=== PATIENT | female | born 1970 | race Caucasian/White ===

== ENCOUNTER 2017-02-03 09:58 | Emergency (ER) | payer MEDICAID ==
[~2017-02-03] VITALS: Ht 162.6 cm; Wt 92.5 kg
[~2017-02-03 09:58] MED LIST: ANT12.5 PO; MAC100 PO; MOTRIN800 MG PO
[2017-02-03 10:57] LABS: microscopic required? YES; urine erythrocyte 2+ (NEGATIVE)
[2017-02-03 11:01] LABS: BASOPHIL % 0.3 % (0-2); PLATELET COUNT 241 x10^3mcL (130-400); RED CELL DISTRIBUTION WIDTH 12.7 % (11.5-14.5)
[2017-02-03 11:03] LABS: CALCIUM 8.5 mg/dL (8.5-10.1); CARBON DIOXIDE 23.4 mmol/L (21-32); CHLORIDE SERUM 110 mmol/L (98-107); CREATININE SERUM 0.6 mg/dL (0.6-1.0); GFR1 > 60 mL/min; GLUCOSE SERUM 95 mg/dL (74-106); SODIUM SERUM 144 mmol/L (136-145)
[2017-02-03 11:07] LABS: ALBUMIN 3.1 g/dL (3.4-5.0); ALKALINE PHOSPHATASE 91 U/L (46-116); ALT/SGPT 19 U/L (14-59); AST/SGOT 13 U/L (15-37); BILIRUBIN TOTAL 0.23 mg/dL (0.20-1.00); TOTAL PROTEIN, SERUM 6.9 g/dL (6.4-8.2)
[2017-02-03 12:50] VITALS: BP 118/64
== END 2017-02-03 12:50 | disposition home or self-care (01) ==
LOC: ED 09:58
PROVIDERS: Emergency Medicine
DX: R10.30 Lower abdominal pain, unspecified (principal); R11.0 Nausea; R03.0 Elevated blood-pressure reading, without diagnosis of hypertension; Z87.442 Personal history of urinary calculi
CPT/HCPCS: 36415; J3010; Q0162

== ENCOUNTER 2017-08-30 18:29 | Emergency (ER) | payer MEDICAID ==
[~2017-08-30] VITALS: Ht 157.5 cm; Wt 95.2 kg
[2017-08-30 18:34] VITALS: Ht 157.5 cm; Wt 95.2 kg
[2017-08-30 19:50] LABS: BASOPHIL % 0.3 % (0-2); PLATELET COUNT 291 x10^3mcL (130-400); RED CELL DISTRIBUTION WIDTH 12.9 % (11.5-14.5)
[2017-08-30 20:05] LABS: CARBON DIOXIDE 24.4 mmol/L (21-32); CHLORIDE SERUM 106 mmol/L (98-107); CREATININE SERUM 0.9 mg/dL (0.6-1.0); GFR1 > 60 mL/min; GLUCOSE SERUM 106 mg/dL (74-106); POTASSIUM SERUM 3.7 mmol/L (3.5-5.1); SODIUM SERUM 140 mmol/L (136-145)
[2017-08-30 20:09] LABS: ALBUMIN 3.8 g/dL (3.4-5.0); ALKALINE PHOSPHATASE 109 U/L (46-116); AST/SGOT 15 U/L (15-37); BILIRUBIN TOTAL 0.17 mg/dL (0.20-1.00); TOTAL PROTEIN, SERUM 7.7 g/dL (6.4-8.2)
[2017-08-30 20:22] VITALS: BP 130/73
[2017-08-30 20:28] LABS: ALT/SGPT 19 U/L (14-59)
== END 2017-08-30 21:06 | disposition home or self-care (01) ==
LOC: ED 18:29
PROVIDERS: Emergency Medicine
DX: N20.0 Calculus of kidney (principal); E78.00 Pure hypercholesterolemia, unspecified
CPT/HCPCS: J1885; J7030

== ENCOUNTER 2017-11-05 21:53 | Emergency (ER) | payer MEDICAID ==
[~2017-11-05] VITALS: Ht 157.5 cm; Wt 98.0 kg
[2017-11-05 22:49] VITALS: Ht 157.5 cm; Wt 98.0 kg
[2017-11-06 01:11] VITALS: BP 135/91
== END 2017-11-06 01:11 | disposition home or self-care (01) ==
LOC: ED 21:53
DX: R22.2 Localized swelling, mass and lump, trunk (principal); E78.00 Pure hypercholesterolemia, unspecified

== ENCOUNTER 2017-11-19 01:18 | Inpatient (IN) | payer MEDICAID ==
[~2017-11-19] VITALS: Ht 157.5 cm; Wt 98.9 kg
[~2017-11-19 01:18] MED LIST changes: +ADV200 PO; -MOTRIN800 MG PO
[2017-11-19 01:27] VITALS: Ht 157.5 cm; Wt 98.9 kg
[2017-11-19 05:05] LABS: BASOPHIL % 0.2 % (0-2); PLATELET COUNT 278 x10^3mcL (130-400); RED CELL DISTRIBUTION WIDTH 12.9 % (11.5-14.5)
[2017-11-19 05:11] LABS: CALCIUM 8.6 mg/dL (8.5-10.1); CARBON DIOXIDE 23.3 mmol/L (21-32); CHLORIDE SERUM 105 mmol/L (98-107); CREATININE SERUM 0.9 mg/dL (0.6-1.0); GFR1 > 60 mL/min; GLUCOSE SERUM 116 mg/dL (74-106); POTASSIUM SERUM 3.9 mmol/L (3.5-5.1); SODIUM SERUM 140 mmol/L (136-145)
[2017-11-19 06:40] VITALS: BP 123/68
[2017-11-19 06:57] LABS: T3 TOTAL 1.17 ng/mL
[2017-11-19 07:34] LABS: CHOLESTEROL/HDL RATIO 5.1; MAGNESIUM 1.9 mg/dL (1.8-2.4); PHOSPHOROUS 3.4 mg/dL (2.5-4.9)
[2017-11-19 07:36] LABS: FREE T4 1.15 ng/dL (0.76-1.46); FREE THYROXINE INDEX 2.8 ug/dL (1.4-4.5); T4(THYROXINE) 8.9 ug/dL (4.7-13.3)
[2017-11-19 09:16] VITALS: BP 129/69
[2017-11-19 11:01] VITALS: BP 129/69
[2017-11-19 12:39] VITALS: BP 121/50
[2017-11-19 13:23] LABS: UA SPECIFIC GRAVITY 1.015 (1.005-1.035); microscopic required? YES; urine erythrocyte TRACE (NEGATIVE)
[2017-11-19 14:16] LABS: AMPHETAMINE QUAL UR NONE DETECTED (NEG <=1000)
[2017-11-19 16:27] VITALS: BP 114/69
[2017-11-19 20:28] VITALS: BP 135/79
[2017-11-20 05:31] VITALS: BP 140/78
[2017-11-20] MEDS ORDERED: CYCLOBENZAPRINE5 MG PO (09:05)
[2017-11-20] MEDS ORDERED: FLO4 PO (09:05)
[2017-11-20] MEDS ORDERED: APAP/HYDROCODON1 T13 PO (09:06)
[2017-11-20] MEDS ORDERED: COL100 PO (09:07)
[2017-11-20] MEDS ORDERED: LEVAQUIN750 MG PO (09:09)
[2017-11-20] MEDS ORDERED: LAC PO (09:10)
[2017-11-20 09:35] LABS: CALCIUM 8.3 mg/dL (8.5-10.1); CARBON DIOXIDE 25.2 mmol/L (21-32); CHLORIDE SERUM 108 mmol/L (98-107); CREATININE SERUM 0.9 mg/dL (0.6-1.0); GFR1 > 60 mL/min; GLUCOSE SERUM 107 mg/dL (74-106); SODIUM SERUM 141 mmol/L (136-145)
[2017-11-20 09:51] LABS: BASOPHIL % 0.4 % (0-2); PLATELET COUNT 254 x10^3mcL (130-400); RED CELL DISTRIBUTION WIDTH 12.8 % (11.5-14.5)
[2017-11-20 09:53] VITALS: BP 123/75
[2017-11-20 11:25] VITALS: BP 123/75
== END 2017-11-20 12:22 | disposition home or self-care (01) | DRG 463 ==
LOC: ED 01:18 → DU 05:38
PROVIDERS: Emergency Medicine; Family Medicine
DX: N13.6 Pyonephrosis (principal); K85.90 Acute pancreatitis without necrosis or infection, unspecified; R73.03 Prediabetes; E78.5 Hyperlipidemia, unspecified; F17.200 Nicotine dependence, unspecified, uncomplicated; E66.01 Morbid (severe) obesity due to excess calories; Z68.39 Body mass index [BMI] 39.0-39.9, adult; Z87.442 Personal history of urinary calculi
CPT/HCPCS: 83880; 84439; J0696; J1885; J2270; J2405; J7030; Q0092

== ENCOUNTER 2018-01-05 00:26 | Emergency (ER) | payer MEDICAID ==
[~2018-01-05] VITALS: Ht 157.5 cm; Wt 96.9 kg
[~2018-01-05 00:26] MED LIST changes: +APAP/HYDROCODON1 T13 PO; +COL100 PO; +CYCLOBENZAPRINE5 MG PO; +FLO4 PO; +LAC PO; +LEVAQUIN750 MG PO
[2018-01-05 00:39] VITALS: Ht 157.5 cm; Wt 96.9 kg
[2018-01-05 03:39] LABS: BASOPHIL % 0.4 % (0-2); PLATELET COUNT 291 x10^3mcL (130-400); RED CELL DISTRIBUTION WIDTH 12.7 % (11.5-14.5)
[2018-01-05 03:41] LABS: UA SPECIFIC GRAVITY >=1.030 (1.005-1.035); microscopic required? YES; urine erythrocyte 3+ (NEGATIVE)
[2018-01-05 04:59] LABS: CARBON DIOXIDE 25.7 mmol/L (21-32); CHLORIDE SERUM 107 mmol/L (98-107); CREATININE SERUM 0.8 mg/dL (0.6-1.0); GFR1 > 60 mL/min; GLUCOSE SERUM 107 mg/dL (74-106); POTASSIUM SERUM 3.7 mmol/L (3.5-5.1); SODIUM SERUM 143 mmol/L (136-145); TOTAL PROTEIN, SERUM 7.4 g/dL (6.4-8.2)
[2018-01-05 05:00] LABS: ALBUMIN 3.5 g/dL (3.4-5.0); ALKALINE PHOSPHATASE 108 U/L (46-116); ALT/SGPT 24 U/L (14-59); AST/SGOT 17 U/L (15-37); BILIRUBIN TOTAL 0.15 mg/dL (0.20-1.00); CALCIUM 8.8 mg/dL (8.5-10.1)
[2018-01-05 06:11] VITALS: BP 126/88
== END 2018-01-05 06:19 | disposition home or self-care (01) ==
LOC: ED 00:26
PROVIDERS: Emergency Medicine
DX: N20.1 Calculus of ureter (principal); R11.10 Vomiting, unspecified; E78.00 Pure hypercholesterolemia, unspecified
CPT/HCPCS: J1885; J2270; J2405; J7030

== ENCOUNTER 2018-04-11 01:54 | Emergency (ER) | payer MEDICAID ==
[~2018-04-11] VITALS: Ht 157.5 cm; Wt 95.3 kg
[2018-04-11 02:24] VITALS: Ht 157.5 cm; Wt 95.3 kg
[2018-04-11 04:12] LABS: BASOPHIL % 0.3 % (0-2); PLATELET COUNT 289 x10^3mcL (130-400); RED CELL DISTRIBUTION WIDTH 13.2 % (11.5-14.5)
[2018-04-11 04:24] LABS: CALCIUM 8.8 mg/dL (8.5-10.1); CARBON DIOXIDE 25.1 mmol/L (21-32); CHLORIDE SERUM 106 mmol/L (98-107); CREATININE SERUM 0.8 mg/dL (0.6-1.0); GFR1 > 60 mL/min; GLUCOSE SERUM 126 mg/dL (74-106); POTASSIUM SERUM 3.3 mmol/L (3.5-5.1); SODIUM SERUM 140 mmol/L (136-145)
[2018-04-11 04:28] LABS: ALBUMIN 3.5 g/dL (3.4-5.0); ALKALINE PHOSPHATASE 100 U/L (46-116); ALT/SGPT 20 U/L (14-59); AST/SGOT 14 U/L (15-37); BILIRUBIN TOTAL 0.2 mg/dL (0.20-1.00); LIPASE 197 IU/L (73-393); TOTAL PROTEIN, SERUM 7.4 g/dL (6.4-8.2)
[2018-04-11 05:13] VITALS: BP 139/90
== END 2018-04-11 07:12 | disposition home or self-care (01) ==
LOC: ED 01:54
PROVIDERS: Emergency Medicine
DX: N21.1 Calculus in urethra (principal); E78.00 Pure hypercholesterolemia, unspecified; Z98.890 Other specified postprocedural states
CPT/HCPCS: J2270; J2405; J7030; Q0162

== ENCOUNTER 2018-11-17 00:40 | Emergency (ER) | payer MEDICAID ==
[~2018-11-17] VITALS: Ht 157.5 cm; Wt 95.7 kg
[2018-11-17 01:11] VITALS: Ht 157.5 cm; Wt 95.7 kg
[2018-11-17 02:33] LABS: BASOPHIL % 0.4 % (0-2); PLATELET COUNT 329 x10^3mcL (130-400)
[2018-11-17 02:41] LABS: CALCIUM 8.8 mg/dL (8.5-10.1); CARBON DIOXIDE 26.4 mmol/L (21-32); CHLORIDE SERUM 105 mmol/L (98-107); CREATININE SERUM 0.8 mg/dL (0.6-1.0); GFR1 > 60 mL/min; GLUCOSE SERUM 108 mg/dL (74-106); POTASSIUM SERUM 3.8 mmol/L (3.5-5.1); SODIUM SERUM 140 mmol/L (136-145)
[2018-11-17 02:46] LABS: ALBUMIN 3.6 g/dL (3.4-5.0); ALKALINE PHOSPHATASE 105 U/L (46-116); ALT/SGPT 21 U/L (14-59); AST/SGOT 12 U/L (15-37); BILIRUBIN TOTAL 0.2 mg/dL (0.20-1.00); TOTAL PROTEIN, SERUM 7.5 g/dL (6.4-8.2)
[2018-11-17 05:24] VITALS: BP 120/60
== END 2018-11-17 05:24 | disposition home or self-care (01) ==
LOC: ED 00:40
PROVIDERS: Emergency Medicine
DX: N20.0 Calculus of kidney (principal); K80.80 Other cholelithiasis without obstruction; E78.00 Pure hypercholesterolemia, unspecified; Z87.442 Personal history of urinary calculi; Z98.890 Other specified postprocedural states
CPT/HCPCS: J1885; J2270; J2405; J2765; J7030

== ENCOUNTER 2019-07-09 11:42 | Inpatient (IN) | payer MEDICAID ==
[~2019-07-09] VITALS: Ht 157.5 cm; Wt 96.6 kg
[~2019-07-09 11:42] MED LIST changes: -ADV200 PO
--- NOTE | 2019-07-09 12:34 | NUR ---
PT IS LYING ON BED, CO ABD PAIN ON RLQ WITH N/V/D SINCE YESTERDAY. NO FURTHER CO. PT WAS A/OX3. SPEAKS FULL SENTENCES, FOLLOWS COMMAND, DENIES VIRAMONTES AND DIZZINESS. NO SOB. BREATHING EVEN.
[2019-07-09 13:56] LABS: microscopic required? NO
--- NOTE | 2019-07-09 14:00 | NUR ---
IV SL ESTABLISHED ON LH.G20. NS0.9% STARTED TO RUN. TORADOL AND ZOFRAN GIVEN IVP.
--- NOTE | 2019-07-09 14:08 | NUR ---
PT WAS BROUGHT TO CT.
[2019-07-09 14:11] LABS: urine erythrocyte NEGATIVE (NEGATIVE)
[2019-07-09 14:15] LABS: BASOPHIL % 0.5 % (0-2); PLATELET COUNT 271 x10^3mcL (130-400); RED CELL DISTRIBUTION WIDTH 13.4 % (11.5-14.5)
[2019-07-09 14:34] LABS: CALCIUM 8.6 mg/dL (8.5-10.1); CARBON DIOXIDE 27.9 mmol/L (21-32); CHLORIDE SERUM 106 mmol/L (98-107); CREATININE SERUM 0.7 mg/dL (0.6-1.0); GFR1 > 60 mL/min; GLUCOSE SERUM 118 mg/dL (74-106); POTASSIUM SERUM 3.3 mmol/L (3.5-5.1); SODIUM SERUM 142 mmol/L (136-145)
[2019-07-09 14:39] LABS: ALBUMIN 3.4 g/dL (3.4-5.0); ALKALINE PHOSPHATASE 97 U/L (46-116); ALT/SGPT 20 U/L (14-59); AST/SGOT 10 U/L (15-37); BILIRUBIN TOTAL 0.2 mg/dL (0.20-1.00); LIPASE 102 IU/L (73-393); TOTAL PROTEIN, SERUM 7.6 g/dL (6.4-8.2)
[2019-07-09] MEDS ORDERED: HYDROCHLOROTH12.5 M2 PO (15:04)
--- NOTE | 2019-07-09 16:23 | NUR ---
PT WAS ADMITED TO M/S. ROOM OBTAINED 325B. REPORT WAS CALLED AND GIVEN TO MATHEW. MAN.
--- NOTE | 2019-07-09 16:30 | NUR ---
RECEIVED PT FROM ED VIA [facility], CAME IN DUE TO ABDOMINAL PAIN X2 DAYS. AAOX4. STATED THAT SHE HAS MILD DIZZINESS. ABLE TO FOLLOW COMMANDS. NO SOB NOTED, LUNG SOUNDS CTA, O2 SAT=97%, RA. DENIES CHEST PAIN/PRESSURE. C/O 9/10 RLQ ABDOMINAL PAIN DESCRIBED ACHING. HAD DIARRHEAL EPISODES X3 DAYS, HAD 3 EPISODES TODAY. ABDOMEN IS SOFT AND ROUND. VOIDS. IV SITE PATENT AND INTACT. SIDE RAILS UPX2. CALL LIGHT ON REACH. ENDORSED TO PRIMARY NURSE ROCÍO FOR CONTINUITY OF CARE
[2019-07-09 16:55] VITALS: BP 110/64
[2019-07-09 16:58] VITALS: Ht 157.5 cm; Wt 96.6 kg
--- NOTE | 2019-07-09 17:31 | NUR ---
INFLUENZA VACCINE ADMINISTERED TO R ARM.
--- NOTE | 2019-07-09 18:14 | NUR ---
PT AOX4, RESP E/U ON RA. REPORTED MILD ABD PAIN TO RLQ 3/10 BUT TOLERABLE, DENIES N/V. PT HEP LOCKED AND BROUGHT DOWN TO OR FOR LAP APPY AT THIS TIME.
--- NOTE | 2019-07-09 19:07 | NUR ---
RECEIVED REPORT FROM PREVIOUS SHIFT NURSE. PT REMAINS IN OR AT THIS TIME.
[2019-07-09 20:05] VITALS: BP 104/63
--- NOTE | 2019-07-09 20:05 | NUR ---
RECEIVED PT FROM ER. PT AOX4, DENIES VIRAOMNTES/DIZZINESS. MED SURG PT, DENIES CP/PRESSURE. DENIES SOB/DIFFICULTY BREATHING, ON RA. BOWEL SOUNDS HYPOACTIVE, 3 SURGICAL INCISIONS WITH BAND AIDS IN PLACE, CDI. ABD TENDER TO TOUCH. IV TO L. HAND, INTACT AND PATENT. BED IN LOWEST POSITION. CALL LIGHT WITHIN REACH. WILL CONTINUE TO MONITOR.
--- NOTE | 2019-07-09 20:30 | NUR ---
PT DESATING TO 88% ON RA. PT PLACED ON 2L NC. SATING AT 94%.
[2019-07-09 20:46] VITALS: BP 99/59
[2019-07-09 22:18] VITALS: BP 103/43
--- NOTE | 2019-07-10 00:25 | NUR ---
PT BP 94/50 MAP 72, PT REQUESTING PAIN MEDICATION. DR. DOUGLAS MADE AWARE. TORADOL IVP ORDERED AND ADMINISTERED PER DR. CREWS.
--- NOTE | 2019-07-10 02:00 | NUR ---
PT RESTING IN BED. RR EVEN AND UNLABORED. IN NO ACUTE DISTRESS. CALL LIGHT WITHIN REACH. BED IN LOWEST POSITION. WILL CONTINUE TO MONITOR.
[2019-07-10 04:56] VITALS: BP 96/51
[2019-07-10 06:28] LABS: PLATELET COUNT 257 x10^3mcL (130-400); RED CELL DISTRIBUTION WIDTH 13.4 % (11.5-14.5)
[2019-07-10 07:00] LABS: CALCIUM 8.5 mg/dL (8.5-10.1); CARBON DIOXIDE 24.5 mmol/L (21-32); CHLORIDE SERUM 108 mmol/L (98-107); CREATININE SERUM 0.9 mg/dL (0.6-1.0); GFR1 > 60 mL/min; GLUCOSE SERUM 118 mg/dL (74-106); MAGNESIUM 2.3 mg/dL (1.8-2.4); PHOSPHOROUS 3.1 mg/dL (2.5-4.9); POTASSIUM SERUM 4.4 mmol/L (3.5-5.1); SODIUM SERUM 141 mmol/L (136-145)
[2019-07-10 07:09] LABS: BASOPHIL % 0 % (0-2)
--- NOTE | 2019-07-10 07:12 | NUR ---
RECEIVED PT FROM ADMINISTRATOR OF HOME HEALTH NURSE. PT IN BED SLEEPING, AROUSABLE, RESP E/U ON 2L NC. NO SIGNS OF ACUTE DISTRESS NOTED. IV TO L HAND W/ NO SIGNS OF INFILTRATION, IVF INFUSING WELL. BED IN LOWEST POSITION AND CALL LIGHT WITHIN REACH. WILL CONTINUE TO MONITOR.
[2019-07-10 08:38] VITALS: BP 110/62
--- NOTE | 2019-07-10 11:32 | NUR ---
PT RESTING IN BED, AOX4, RESP E/U ON RA. DENIES NAUSEA, ABD PAIN OR SOB, NO ACUTE DISTRESS NOTED. BED IN LOWEST POSTIION AND CALL LIGHT WITHIN REACH. WILL CONTINUE TO MONITOR.
[2019-07-10 12:09] VITALS: BP 107/60
[2019-07-10] MEDS ORDERED: MOT800 PO (12:41)
[2019-07-10 12:59] VITALS: BP 107/60
[2019-07-10] MEDS ORDERED: ADV200 PO (13:08)
--- NOTE | 2019-07-10 14:10 | NUR ---
PT DISCHARGED. REVIEWED DISCHARGE PACKET W/ PT. PT AOX4, RESP E/U ON RA, VS STABLE, DENIES ABD PAIN OR N/V AT THIS TIME. IV TO L HAND REMOVED, CATH INTACT, GAUZE DRESSING APPLIED. PT AMBULATORY TO [facility], ESCORTED BY MISBAH CAMACHO W/ NO ACUTE INCIDENCE.
== END 2019-07-10 14:10 | disposition home or self-care (01) | DRG 233 ==
LOC: ED 11:42 → MU 15:47
PROVIDERS: Emergency Medicine; Surgery; ADMIT Internal Medicine
PROC: 0DTJ4ZZ Resection of Appendix, Percutaneous Endoscopic Approach (ICD-10-PCS; principal; 2019-07-09 18:30)
DX: K35.30 Acute appendicitis with localized peritonitis, without perforation or gangrene (principal); E78.5 Hyperlipidemia, unspecified; E87.6 Hypokalemia; I10 Essential (primary) hypertension
CPT/HCPCS: 90658; G0378; J0330; J0694; J1170; J1885; J2250; J2270; J2405; J2543; J2704; J3010; J3490; J7030; J7120

== ENCOUNTER 2019-07-25 13:55 | Emergency (ER) | payer MEDICAID ==
[~2019-07-25] VITALS: Ht 147.3 cm; Wt 97.1 kg
[~2019-07-25 13:55] MED LIST changes: +ADV200 PO; +HYDROCHLOROTH12.5 M2 PO; +MOT800 PO
[2019-07-25 14:07] VITALS: Ht 147.3 cm; Wt 97.1 kg
[2019-07-25 17:55] LABS: BASOPHIL % 0.6 % (0-2); PLATELET COUNT 325 x10^3mcL (130-400); RED CELL DISTRIBUTION WIDTH 12.8 % (11.5-14.5)
[2019-07-25 17:59] LABS: CARBON DIOXIDE 29.1 mmol/L (21-32); CHLORIDE SERUM 103 mmol/L (98-107); CREATININE SERUM 0.7 mg/dL (0.6-1.0); GFR1 > 60 mL/min; GLUCOSE SERUM 100 mg/dL (74-106); POTASSIUM SERUM 3.4 mmol/L (3.5-5.1); SODIUM SERUM 138 mmol/L (136-145)
[2019-07-25 18:03] LABS: ALBUMIN 3.5 g/dL (3.4-5.0); ALKALINE PHOSPHATASE 95 U/L (46-116); ALT/SGPT 23 U/L (14-59); AMYLASE 73 U/L (25-115); AST/SGOT 11 U/L (15-37); BILIRUBIN TOTAL 0.2 mg/dL (0.20-1.00); LIPASE 210 IU/L (73-393); TOTAL PROTEIN, SERUM 7.5 g/dL (6.4-8.2)
[2019-07-25 20:03] VITALS: BP 125/79
== END 2019-07-25 20:03 | disposition home or self-care (01) ==
LOC: ED 13:55
PROVIDERS: Emergency Medicine
DX: N20.0 Calculus of kidney (principal); Z90.89 Acquired absence of other organs; Z98.890 Other specified postprocedural states
CPT/HCPCS: 36415; J1885; Q0162